=== PATIENT | male | born 1970 | race Caucasian/White ===

== ENCOUNTER 2021-02-14 07:27 | Outpatient (RCR) | payer OTHER, MEDICARE, SELFPAY ==
[2021-02-14 08:14] VITALS: BP 157/87; PULSE 68; RESP 16; TEMP 36.6; O2SAT 100
[2021-02-14] MEDS: diphenhydrAMINE HCl CAP 25 MG CAPSULE PO (08:17)
[2021-02-14] MEDS: FAMOTIDINE 20 MG TABLET PO (08:17)
[2021-02-14] MEDS: ACETAMINOPHEN 325 MG TABLET 650 MG PO (08:17)
[2021-02-14 09:53] VITALS: BP 141/74
--- NOTE | 2021-02-15 08:47 | PC.NURSE ---
Called Mr Gatica he stated he is not doing much better at all, he thinks he is dehydrated and I told him to call PCP or go to the ER, if he feels he is that ill. He has no other questions at this time.
--- NOTE | 2021-02-18 09:15 | PC.NURSE ---
Mr Gavi called this morning concerned about not feeling better and stated the [facility] told him to call us to see if there is another treatment available. I told him do not have any other options for him, but he should call his PCP or go to the ER, if he is not improving. He verbalized he will call and had no other questions at this time.
== END 2021-02-14 17:00 ==
LOC: AMCINF 07:27
PROVIDERS: PCP Registered Nurse; Visit Provider Internal Medicine Hematology & Oncology
DX: U07.1 COVID-19 (principal); I10 Essential (primary) hypertension
CPT/HCPCS: A9270; M0245; Q0245